=== PATIENT | male | born 1980 | race African-American/Black ===

== ENCOUNTER 2020-09-21 09:20 | Emergency (ER) | payer MEDICAID ==
[~2020-09-21] VITALS: Ht 175.3 cm; Wt 88.0 kg
[2020-09-21 09:29] VITALS: BP 123/68
== END 2020-09-21 10:32 | disposition home or self-care (01) ==
LOC: ER 09:20
DX: M54.89 Other dorsalgia (principal); J45.909 Unspecified asthma, uncomplicated; F12.10 Cannabis abuse, uncomplicated; V43.52XA Car driver injured in collision with other type car in traffic accident, initial encounter; Y93.89 Activity, other specified; Y92.488 Other paved roadways as the place of occurrence of the external cause
CPT/HCPCS: 99281; Z7610